=== PATIENT | female | born 1980 | race Caucasian/White ===

== ENCOUNTER 2016-12-15 17:32 | Emergency (ER) | payer OTHER ==
[~2016-12-15] VITALS: Ht 162.6 cm; Wt 120.0 kg
[~2016-12-15 17:32] MED LIST: COUG100S2 PO; DEXTLIQ PO; GUAI100S6 PO; MOTR200T PO; ZITH250T PO
[2016-12-15 17:37] VITALS: PULSE 100; RESP 16; TEMP 98; O2SAT 96
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
[2016-12-15] MEDS ORDERED: TETANUS/DIPHTHERIA TOXOID ADULT 0.5 ML VIAL IM ONE (19:00)
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
[2016-12-15] MEDS ORDERED: CYCL1TAB29 PO (19:50)
[2016-12-15] MEDS ORDERED: IBUP800T23 PO (19:50)
== END 2016-12-15 19:56 | disposition home or self-care (01) ==
LOC: PHEFT 17:32
DX: M79.1 Myalgia (principal); M25.512 Pain in left shoulder; S81.812A Laceration without foreign body, left lower leg, initial encounter; Z23 Encounter for immunization; V43.53XA Car driver injured in collision with pick-up truck in traffic accident, initial encounter; Y93.9 Activity, unspecified; Y92.9 Unspecified place or not applicable; Y99.9 Unspecified external cause status
CPT/HCPCS: 72072; 73564; 73590; 90471; 90714

== ENCOUNTER 2017-06-03 21:04 | Emergency (ER) | payer SELFPAY ==
[~2017-06-03 21:04] MED LIST changes: -COUG100S2 PO; +CYCL1TAB29 PO; -DEXTLIQ PO; -GUAI100S6 PO; +IBUP800T23 PO; -MOTR200T PO; -ZITH250T PO
[2017-06-03 21:08] VITALS: BP 160/87; PULSE 93; RESP 20; TEMP 98.1; O2SAT 99
[2017-06-03] MEDS ORDERED: CEPH-460 PO (21:40)
[2017-06-03] MEDS ORDERED: IBUP800T23 PO (21:40)
[2017-06-03] MEDS ORDERED: HYDR-3534 PO (21:40)
--- NOTE | 2017-06-03 21:41 | PD ---
HPI Chief Complaint: ENT Complaint Time Seen by Provider: 21:36 Travel History International Travel<30 days: No Contact w/Intl Traveler<30days: No Traveled to known affect area: No History of Present Illness HPI This 36-year-old female is complaining of pain in her right ear. She says that this has been going on for 5 days. She thought was getting better but got worse. She's been taking ibuprofen 800 mg with some relief. She has had frequent ear infections recently. She says that she had an infection not too long ago and the drops seemed to make it a lot worse. PFSH Past Medical History Medical History: Denies Significant Hx Influenza Vaccination: No ?: Unknown LMP: 2 WEEKS AGO Past Surgical History Section: Yes Social History Alcohol Use: Yes (SOCIAL) Tobacco Use: No (quit) Substance Use: No Allergies-Medications (Allergen,Severity, Reaction): Coded Allergies: penicillin G (Unverified Allergy, Severe, Hives, 06/03/17) SOB WITH HIVES Reported Meds & Prescriptions Reported Meds & Active Scripts Active Flexeril (Cyclobenzaprine HCl) 10 Mg Tab 10 Mg PO TID Ibuprofen 800 Mg Tab 800 Mg PO Q8H Review of Systems General / Constitutional: No: Fever, Chills Eyes: No: Blurred Vision HENT: Positive: Earache Cardiovascular: No: Chest Pain or Discomfort Respiratory: No: Cough, Shortness of Breath Gastrointestinal: No: Nausea Physical Exam Narrative GENERAL: Well-developed female SKIN: Focused skin assessment warm/dry. HEAD: Atraumatic. Normocephalic. EYES: Pupils equal and round. No scleral icterus. No injection or drainage. ENT: No nasal bleeding or discharge. Mucous membranes pink and moist. Right ear canal is swollen shut and very tender. Left TM is normal NECK: Trachea midline. No JVD. CARDIOVASCULAR: Regular rate and rhythm. No murmur appreciated. RESPIRATORY: No accessory muscle use. Clear to auscultation. Breath sounds equal bilaterally. GASTROINTESTINAL: Abdomen soft, non-tender, nondistended. Hepatic and splenic margins not palpable. MUSCULOSKELETAL: No obvious deformities. No clubbing. No cyanosis. No edema. NEUROLOGICAL: Awake and alert. No obvious cranial nerve deficits. Motor grossly within normal limits. Normal speech. PSYCHIATRIC: Appropriate mood and affect; insight and judgment normal. Data Data Last Documented VS Vital Signs Date Time Temp Pulse Resp B/P (MAP) Pulse Ox O2 Delivery O2 Flow Rate FiO2 06/03/17 21:08 98.1 93 20 160/87 (111) 99 MDM Medical Decision Making Medical Screen Exam Complete: Yes Emergency Medical Condition: Yes Medical Record Reviewed: Yes Differential Diagnosis Differential includes otitis media, otitis externa, maybe a small cyst or abscess in the ear canal Narrative Course Patient be placed on Keflex Diagnosis Primary Impression: Right otitis externa Scripts Hydrocodone-Acetaminophen (Lortab) 7.5-325 Mg Tab 1 TAB PO Q4H Y for PAIN for 14 Days, TAB 0 Refills Prov: Charles Kuhn MD 06/03/17 Ibuprofen (Ibuprofen) 800 Mg Tab 800 MG PO Q8H Y for PAIN SCALE 1 TO 10, #20 TAB 0 Refills Prov: Charles Kuhn MD 06/03/17 Cephalexin (Keflex) 500 Mg Cap 500 MG PO Q6H for Infection for 7 Days, CAP 0 Refills Prov: Charles Kuhn MD 06/03/17 Disposition: 01 DISCHARGE HOME Condition: Stable Charles Kuhn MD Jun 03, 2017 21:41
[2017-06-03] MEDS ORDERED: CEPHALEXIN MONOHYDRATE 500 MG CAP PO ONE (21:45)
== END 2017-06-03 21:54 | disposition home or self-care (01) ==
LOC: PHEFT 21:04
DX: H60.91 Unspecified otitis externa, right ear (principal)
CPT/HCPCS: 99284

== ENCOUNTER 2018-03-31 09:47 | Observation (INO) ==
[2018-04-02] MEDS ORDERED: Morphine Sulfate Inj 2 MG/ML Vial IV.PUSH PRN (00:01)
[2018-04-02] MEDS ORDERED: Acetaminophen 500 MG Tablet PO PRN (00:01)
[2018-04-02] MEDS ORDERED: MethylPREDNISolone Sod Succinate Inj 40 MG/ML Vial IV.PUSH SCH (01:00)
--- NOTE | 2018-04-02 07:14 | P.PN ---
Subjective Interval history: Follow-up chest pain, and acute respiratory failure. Patient seen and examined , lying in bed comfortably no apparent distress. Continued on 3 L nasal cannula. Denies any chest pain. Has been ambulating with mild use of breath. Vital signs are stable overnight. Afebrile. Has been eating well no nausea vomiting or abdominal pain. Patient will undergo a cardiac myocardial perfusion scan today. Physical Exam Vital signs: Vital Signs 04/02/18 02:28 04/02/18 04:00 Temperature 96.3 F L 97.5 F L Pulse Rate 90 72 Respiratory Rate 18 18 Blood Pressure 125/58 L 121/59 L Pulse Oximetry 96 96 Intake & Output 04/01/18 04/02/18 04/02/18 18:59 06:59 18:59 Intake Total 0 / 0 Balance 0 / 0 Weight 115.5 kg 115.4 kg Intake: Oral 0 / 0 Other: # Voids 3 Narrative: GENERAL: Well-developed, obese female patient in NAD. Shallow breathing. On supplemental O2. SKIN: Warm and dry. No rash. HEAD: Normocephalic. Atraumatic. EYES: Pupils equal and round. No scleral icterus. No injection or drainage. ENT: No nasal bleeding or discharge. Mucous membranes pink and moist. NECK: Supple. Trachea midline. CARDIOVASCULAR: Regular rate and rhythm. S1, S2 noted. No murmur appreciated. No chest pain to palpation. RESPIRATORY: No accessory muscle use. Rhonchi in posterior lower lobes. Breath sounds equal bilaterally. GASTROINTESTINAL: Abdomen soft, non-tender, nondistended. Normoactive bowel sounds x4. MUSCULOSKELETAL: No obvious deformities. Extremities without clubbing, cyanosis , or edema. NEUROLOGICAL: Awake and alert. No obvious cranial nerve deficits. Motor grossly within normal limits. 5/5 muscle strength in bilateral upper and lower extremities. Normal speech. PSYCHIATRIC: Appropriate mood and affect; insight and judgment normal. Results - Labs CBC & Chem 7: 03/31/18 07:00 03/31/18 07:00 Labs: Laboratory Results - last 24 hr 03/31/18 03/31/18 03/31/18 07:00 07:00 07:00 WBC 12.0 H RBC 5.58 H Hgb 13.8 Hct 40.8 MCV 73.1 L MCH 24.7 L MCHC 33.8 RDW 15.8 Plt Count 286 MPV 9.6 Neut % (Auto) 79.2 H Lymph % (Auto) 15.0 [place] % (Auto) 3.6 Eos % (Auto) 1.9 Baso % (Auto) 0.3 Neut # (Auto) 9.6 H Lymph # (Auto) 1.8 [place] # (Auto) 0.4 Eos # (Auto) 0.2 Baso # (Auto) 0.0 CBC Comment AUTO DIFF Differential Comment AUTO DIFF CONFIRMED PT 9.9 INR 1.0 APTT 34.9 H D-Dimer Quant (PE/DVT) 1.72 H Puncture Site Patient Temperature HCO3 Base Excess O2 Saturation ABG pH ABG pCO2 ABG pO2 ABG O2 Content ABG Carboxyhemoglobin ABG Methemoglobin Hemoglobin O2 Delivery Device Inspired O2 Sodium 138 Potassium 3.9 Chloride 106 Carbon Dioxide 24.5 Anion Gap 8 BUN 9 Creatinine 0.68 Estimated GFR 97 Random Glucose 85 Hemoglobin A1c Calcium 8.9 Magnesium 2.2 Total Bilirubin 0.5 AST 13 L ALT 31 Alkaline Phosphatase 72 Total Creatine Kinase 88 Troponin I LESS THAN 0.02 L B-Natriuretic Peptide Total Protein 8.2 Albumin 3.9 Triglycerides Cholesterol LDL Cholesterol HDL Cholesterol Cholesterol/HDL Ratio Lipase 154 TSH 3rd Generation Ur Collection Type Urine Color Urine Turbidity Urine pH Ur Specific [place] Urine Protein Urine Glucose (UA) Urine Ketones Urine Occult Blood Urine Nitrite Urine Bilirubin Urine Urobilinogen Ur Leukocyte Esterase Urine RBC Urine WBC Ur Squamous Epith Cells Urine Bacteria Micro UA Comment 03/31/18 03/31/18 03/31/18 07:00 07:00 09:41 WBC RBC Hgb Hct MCV MCH MCHC RDW Plt Count MPV Neut % (Auto) Lymph % (Auto) [place] % (Auto) Eos % (Auto) Baso % (Auto) Neut # (Auto) Lymph # (Auto) [place] # (Auto) Eos # (Auto) Baso # (Auto) CBC Comment Differential Comment PT INR APTT D-Dimer Quant (PE/DVT) Puncture Site Patient Temperature HCO3 Base Excess O2 Saturation ABG pH ABG pCO2 ABG pO2 ABG O2 Content ABG Carboxyhemoglobin ABG Methemoglobin Hemoglobin O2 Delivery Device Inspired O2 Sodium Potassium Chloride Carbon Dioxide Anion Gap BUN Creatinine Estimated GFR Random Glucose Hemoglobin A1c 5.3 Calcium Magnesium Total Bilirubin AST ALT Alkaline Phosphatase Total Creatine Kinase 67 Troponin I LESS THAN 0.02 L B-Natriuretic Peptide Total Protein Albumin Triglycerides 96 Cholesterol 153 LDL Cholesterol 96 HDL Cholesterol 37.6 L Cholesterol/HDL Ratio 4.06 Lipase TSH 3rd Generation Ur Collection Type Urine Color Urine Turbidity Urine pH Ur Specific [place] Urine Protein Urine Glucose (UA) Urine Ketones Urine Occult Blood Urine Nitrite Urine Bilirubin Urine Urobilinogen Ur Leukocyte Esterase Urine RBC Urine WBC Ur Squamous Epith Cells Urine Bacteria Micro UA Comment 03/31/18 03/31/18 03/31/18 09:41 12:46 12:46 WBC RBC Hgb Hct MCV MCH MCHC RDW Plt Count MPV Neut % (Auto) Lymph % (Auto) [place] % (Auto) Eos % (Auto) Baso % (Auto) Neut # (Auto) Lymph # (Auto) [place] # (Auto) Eos # (Auto) Baso # (Auto) CBC Comment Differential Comment PT INR APTT D-Dimer Quant (PE/DVT) Puncture Site Patient Temperature HCO3 Base Excess O2 Saturation ABG pH ABG pCO2 ABG pO2 ABG O2 Content ABG Carboxyhemoglobin ABG Methemoglobin Hemoglobin O2 Delivery Device Inspired O2 Sodium Potassium Chloride Carbon Dioxide Anion Gap BUN Creatinine Estimated GFR Random Glucose Hemoglobin A1c Calcium Magnesium Total Bilirubin AST ALT Alkaline Phosphatase Total Creatine Kinase Cancelled 63 Troponin I Cancelled LESS THAN 0.02 L B-Natriuretic Peptide Total Protein Albumin Triglycerides Cholesterol LDL Cholesterol HDL Cholesterol Cholesterol/HDL Ratio Lipase TSH 3rd Generation 1.320 Ur Collection Type Urine Color Urine Turbidity Urine pH Ur Specific [place] Urine Protein Urine Glucose (UA) Urine Ketones Urine Occult Blood Urine Nitrite Urine Bilirubin Urine Urobilinogen Ur Leukocyte Esterase Urine RBC Urine WBC Ur Squamous Epith Cells Urine Bacteria Micro UA Comment 04/01/18 04/01/18 04/01/18 11:40 13:00 16:03 WBC RBC Hgb Hct MCV MCH MCHC RDW Plt Count MPV Neut % (Auto) Lymph % (Auto) [place] % (Auto) Eos % (Auto) Baso % (Auto) Neut # (Auto) Lymph # (Auto) [place] # (Auto) Eos # (Auto) Baso # (Auto) CBC Comment Differential Comment PT INR APTT D-Dimer Quant (PE/DVT) Puncture Site LT RADIAL Patient Temperature 98.6 HCO3 25 Base Excess 0.8 O2 Saturation 90 ABG pH 7.44 H ABG pCO2 37 L ABG pO2 62 ABG O2 Content 16.0 ABG Carboxyhemoglobin 1.6 ABG Methemoglobin 1.2 Hemoglobin 12.7 O2 Delivery Device ROOM AIR Inspired O2 21 Sodium Potassium Chloride Carbon Dioxide Anion Gap BUN Creatinine Estimated GFR Random Glucose Hemoglobin A1c Calcium Magnesium Total Bilirubin AST ALT Alkaline Phosphatase Total Creatine Kinase Troponin I B-Natriuretic Peptide 46 Total Protein Albumin Triglycerides Cholesterol LDL Cholesterol HDL Cholesterol Cholesterol/HDL Ratio Lipase TSH 3rd Generation Ur Collection Type CLEAN CATCH Urine Color YELLOW Urine Turbidity CLEAR Urine pH 6.0 Ur Specific [place] GREATER/EQUAL 1.030 Urine Protein NEG Urine Glucose (UA) NEG Urine Ketones TRACE H Urine Occult Blood TRACE Urine Nitrite NEG Urine Bilirubin NEG Urine Urobilinogen 0.2 Ur Leukocyte Esterase NEG Urine RBC 0-3 Urine WBC 0-2 Ur Squamous Epith Cells > 8 H Urine Bacteria OCC H Micro UA Comment CULT NOT INDICATED Assessment and Plan - Plan This is a 37-year-old female patient with no known medical history who complains of chest pain and shortness of breath. Atypical chest pain. Improved. - Serial EKGs and serial troponins have been ordered for ruling out ACS purposes. Troponins flat. - EKG reviewed showing normal sinus rhythm, controlled heart rate, no ST changes. - Pain control, IV morphine as needed per pain scale. - Chest pain resolved with use of nitroglycerin and morphine in ED. Available as needed. - Patient's risk factors include family history, tobacco abuse, obesity. - Patient will undergo a cardiac myocardial perfusion scan to further rule out any ischemia. Will follow results. Acute respiratory failure with hypoxia Suspected aspiration pneumonia - Pulmonology in to see patient, patient admits to aspirating roughly a week ago. - D-dimer elevated upon presentation, CTA was done showing minimal parenchymal changes laterally left lung suspicious for inflammatory changes. - Patient started on IV steroids. Taper as tolerated. Patient also started on azithromycin for leukocytosis. Monitor for infection. - Supplemental O2, patient requiring 3 L nasal cannula. Encouraged use of IS. Pulmonology consulted, appreciate input and recommendations. - Will add Flagyl, patient already on azithromycin. - Continue to monitor closely. - May possibly have some sleep apnea. Patient to follow-up outpatient. Continue to monitor while hospitalized. Tobacco abuse: Encouraged cessation. Nicotine patch offered, patient refused. Obesity: Patient on Phentamine at home x 6 months without any effect on weight loss. I recommend patient to stop this medication due to it possibly contributing to chest discomfort. Patient is agreeable and will follow up PCP. Will obtain echocardiogram to rule out pulmonary hypertension. DVT prophylaxis: SCDs Patient underwent myocardial perfusion scan, report reviewed and spoke with and , updated about results. Dr. Fischer at bedside, okay to discharge home, follow-up outpatient. Antibiotics, prednisone and inhaler ordered. Patient to undergo home walk test. Patient will be sent home if past walk test. If not home O2 will be ordered. brand manager updated. All questions answered. Patient is much improved and feeling better. Echocardiogram reviewed, unremarkable.
[2018-04-02] MEDS ORDERED: Azithromycin 250 MG Tablet PO SCH (09:00)
[2018-04-02 09:03] VITALS: RESP 18
--- NOTE | 2018-04-02 13:30 | ECHRPT ---
Indication: SOB CONCLUSIONS The left ventricular systolic function is hyperdynamic with an estimated ejection fraction in the ra nge of 65- 70%. Normal left ventricular size. Wall thickness is normal. No regional wall motion abnormalities are present. The left atrial size is mildly dilated. There is trace tricuspid valve regurgitation. The estimated pulmonary arterial pressure is 23.4 mmHg. Normal estimated pulmonary pressures. BP: / HR: Rhythm: Sinus MEASUREMENTS (Male / Female) Normal Values Technical Quality:Fair 2D ECHO LV Diastolic Diameter PLAX 4.3 cm 4.2 - 5.9 / 3.9 - 5.3 cm LV Systolic Diameter PLAX 2.8 cm IVS Diastolic Thickness 1.1 cm 0.6 - 1.0 / 0.6 - 0.9 cm LVPW Diastolic Thickness 1.1 cm 0.6 - 1.0 / 0.6 - 0.9 cm LV Relative Wall Thickness 0.5 RV Internal Dim ED PLAX 3.3 cm LVOT Diameter 2.0 cm LA Systolic Diameter LX 4.1 cm 3.0 - 4.0 / 2.7 - 3.8 cm M-MODE Aortic Root Diameter MM 2.4 cm LA Systolic Diameter MM 4.2 cm LA Ao Ratio MM 1.8 AV Cusp Separation MM 1.5 cm DOPPLER AV Peak Velocity 105.0 cm/s AV Peak Gradient 4.4 mmHg LVOT Peak Velocity 96.7 cm/s LVOT Peak Gradient 3.7 mmHg AV Area Cont Eq pk 2.9 cm MV Peak Velocity 114.0 cm/s MV Peak Gradient 5.2 mmHg MV Mean Velocity 64.8 cm/s MV Mean Gradient 2.0 mmHg MV Area PHT 4.5 cm Mitral E Point Velocity 83.9 cm/s Mitral A Point Velocity 77.5 cm/s Mitral E to A Ratio 1.1 LV E' Lateral Velocity 11.7 cm/s Mitral E to LV E' Lateral Ratio 7.2 LV E' Septal Velocity 7.5 cm/s Mitral E to LV E' Septal Ratio 11.2 TR Peak Velocity 183.0 cm/s TR Peak Gradient 13.4 mmHg Right Atrial Pressure 10.0 mmHg Pulmonary Artery Systolic Pressu 23.4 mmHg Right Ventricular Systolic Press 23.4 mmHg PV Peak Velocity 111.0 cm/s PV Peak Gradient 4.9 mmHg FINDINGS LEFT VENTRICLE The left ventricular systolic function is hyperdynamic with an estimated ejection fraction in the ra nge of 65- 70%. Normal left ventricular size. Wall thickness is normal. No regional wall motion abnormalities are present. RIGHT VENTRICLE Normal right ventricular size and systolic function. LEFT ATRIUM The left atrial size is mildly dilated. RIGHT ATRIUM The right atrial size is normal. ATRIAL SEPTUM Normal atrial septal thickness without atrial level shunting by limited color doppler interrogation. AORTA The aortic root and proximal ascending aorta are normal in size on limited imaging. MITRAL VALVE Structurally normal mitral valve. No mitral valve stenosis or regurgitation. AORTIC VALVE Trileaflet aortic valve. No aortic valve stenosis or regurgitation. TRICUSPID VALVE Structurally normal tricuspid valve. There is trace tricuspid valve regurgitation. The estimated pulmonary arterial pressure is 23.4 mmHg. Normal estimated pulmonary pressures. PULMONARY VALVE No pulmonary valve regurgitation or stenosis. VESSELS The inferior vena cava is normal in size. PERICARDIUM No pericardial effusion. Gt Osborne MD, FACC (Electronically Signed) Final Date:02 April 2018 13:29
--- NOTE | 2018-04-02 13:59 | NM ---
EXAM DATE: 04/02/2018 1:36 PM EDT AGE/SEX: 37 years / Female INDICATIONS:Angina. . Chest pain. CLINICAL DATA: This is the patient's initial encounter. Patient reports that signs and symptoms have been present for 1 day and indicates a pain score of 3/10. MEDICAL/SURGICAL HISTORY: Hypertension. section. COMPARISON: [facility], CT PULMONARY ANGIOGRAM, 03/31/2018. . DOSE: 11 mCi Tc 99m Myoview at rest 35 mCi [id number] at stress 0.4 mg Lexiscan STRESS SYMPTOMS: Short of breath. EJECTION FRACTION: 70 % TECHNIQUE: The patient underwent pharmacologic stress with infusion of prescribed dose. Continuous ECG tracing was monitored during stress. Gated SPECT imaging was performed after stress and conventi onal SPECT imaging was performed at rest. The examination was performed on a SPECT/CT scanner, both attenuation and non-corrected datasets were reviewed. FINDINGS: Distribution: The maximum perfused segment at stress is in the posterobasal wall. Perfusion Study: The pattern of perfusion at stress is within normal limits. Gated Study: There are intact wall motion and wall thickening without hypokinetic or dyskinetic segm ents. The ejection fraction is calculated at 70%. RISK CATEGORY: Low (<1% Annual Motality Rate) CONCLUSION: Negative study Electronically signed by: Froy Ybarra MD 04/02/2018 1:58 PM EDT
--- NOTE | 2018-04-02 15:10 | MD ---
cc: Paula Fischer MD DATE OF DISCHARGE: HISTORY OF PRESENT ILLNESS AND HOSPITAL COURSE: Ms. Roth is a 37-year-old white female who presented with left-sided chest discomfort, a CT scan, which revealed inflammatory infiltrates in the left mid upper lobe and an episode of aspiration by history about a week ago. She was admitted, placed on antibiotic therapy including Zithromax and Flagyl, received a short course of IV corticosteroids and aerosol treatments, and is feeling much better. Because of the left-sided nature of the pain and risk factors that are present, she was also undergoing cardiovascular evaluation, which has not yet been completed. She has been very stable over the course of the hospital stay and on room air, O2 saturations are in the 90s now, but she drops with minimal exertion. The patient may be discharged today or tomorrow. I explained to her, she should give my office a call and I would like to see her back in 2 weeks. Because of the smoking history, she will need pulmonary functions at that point and of course a followup chest x-ray to be sure this infiltrate clears. No cultures have been obtained. She did not produce any sputum. PHYSICAL EXAMINATION: GENERAL: Today, she is awake, alert, comfortable. VITAL SIGNS: Afebrile, blood pressure 120/90, pulse is 90, respirations 18, O2 saturation 93% on room air. CHEST: Clear. No wheezes or rales. No congestion. HEART: Regular rhythm. No harsh murmur. EXTREMITIES: No peripheral edema. DISCHARGE INSTRUCTIONS: The patient will be discharged to complete a another week of antibiotics. I will see her back in the office in 2 weeks and plan followup pulmonary functions and a chest x-ray. I will also place her on an inhaled bronchodilator for discharge and she should have a tapering course of prednisone. I switched her over to oral prednisone today. Further diagnostic and/or therapeutic intervention will depend on her ongoing clinical course and followup. RMD GERALD Amaya/JONNY , 02:00 PM , 03:08 PM
[2018-04-02] MEDS: metroNIDAZOLE 500 MG Tablet PO SCH ×2 (16:08→16:27)
[2018-04-02] MEDS ORDERED: Regadenoson Inj 0.4 MG/5 ML Syringe IV.PUSH ONE ×2 (18:21)
[2018-04-02] MEDS ORDERED: Budesonide-Formoterol 160/4.5 MCG 6 GM Inhaler INH SCH (21:00)
[2018-04-02] MEDS ORDERED: predniSONE 20 MG Tablet PO SCH (21:00)
[2018-04-04 12:42] VITALS: O2SAT 98
[2018-04-04 12:43] VITALS: BP 122/61; PULSE 89; TEMP 97.3
--- NOTE | 2018-07-04 12:44 | TR ---
Date Performed: 04/02/2018 Time Performed: 12:54:42 DOCTOR: Louis Fuentes DRUG LIST: CLINICAL HISTORY: REASON FOR TEST: REASON FOR ENDING: OBSERVATION: CONCLUSION: COMMENTS: Lexiscan stress test was performed under standard four minute protocol. Radionuclide was injected one minute prior to ending the test. No electrocardiographic abormalities were present t o suggest ischemia. Nuclear imaging and interpretation are pending.
== END 2018-04-02 18:22 | disposition home or self-care (01) ==
LOC: PH3 09:47
PROVIDERS: ADMIT Hospitalist; ATTEND Hospitalist